=== PATIENT | female | born 1950 | race Caucasian/White ===

== ENCOUNTER 2018-11-16 09:56 | Day surgery (SDC) | payer MEDICARE, OTHER ==
[2018-11-16] MEDS ORDERED: MIDAZOLAM 1 MG/ML 2 ML INJ (10:37)
[2018-11-16] MEDS ORDERED: PROPOFOL 200 MG INJ (10:37)
[2018-11-16] MEDS ORDERED: PROPOFOL 40 ML (10:37)
== END 2018-11-16 14:33 | disposition home or self-care (01) ==
LOC: GIL 09:56
DX: R19.4 Change in bowel habit (principal); K64.8 Other hemorrhoids; K57.30 Diverticulosis of large intestine without perforation or abscess without bleeding; D12.5 Benign neoplasm of sigmoid colon; I10 Essential (primary) hypertension
CPT/HCPCS: 45380; 88305